=== PATIENT | male | born 1935 | race Caucasian/White ===

== ENCOUNTER 2017-11-30 20:03 | Emergency (ER) | payer MEDICARE ==
[2017-11-30] MEDS ORDERED: SODIUM CHLORIDE 0.9% FLUSH 10 ML SOL IV PRN (20:24)
[2017-11-30] MEDS ORDERED: SODIUM CHLORIDE 0.9% 1000ML 1,000 ML IV ONE (20:45)
[2017-11-30 20:52] LABS: BASOPHILS % (AUTO) 1 % (0-3); EOSINOPHILS % (AUTO) 1 % (0-9); HEMATOCRIT 42 % (39-53); HEMOGLOBIN 13.2 gm/dl (13.5-17.7); LYMPHOCYTES % (AUTO) 23.98 % (10-50); MEAN CORPUSCULAR HEMOGLOBIN 29.4 pg (27.0-32.0); MEAN CORPUSCULAR HGB CONC 31.2 gm/dl (32.0-36.0); MEAN CORPUSCULAR VOLUME 94 fL (80-100); MONOCYTES % (AUTO) 12.8 % (0-12); NEUTROPHILS % (AUTO) 61.2 % (37-80)
[2017-11-30 21:00] LABS: INR 0.97 (0.86-1.12)
[2017-11-30] MEDS ORDERED: LEVETIRACETAM (PREMIX) 1 GM 1 GM/100 ML SOL IV ONE ×2 (21:00→21:06)
[2017-11-30 21:07] LABS: ALBUMIN 3.3 gm/dl (3.4-5.0); BILIRUBIN,DIRECT 0.1 mg/dl (0.0-0.2); BILIRUBIN,TOTAL 0.3 mg/dl (0.2-1.0); CALCIUM 9.9 mg/dl (8.5-10.1); CARBON DIOXIDE 24.6 mEq/L (21-32); CREATININE 1.21 mg/dl (0.80-1.30); POTASSIUM 4.4 mMol/L (3.5-5.1); TOTAL PROTEIN 6.5 gm/dl (6.4-8.2)
[2017-11-30 21:59] VITALS: O2SAT 98
[2017-11-30 22:14] VITALS: BP 158/106; PULSE 68; RESP 30; TEMP 97.2
== END 2017-11-30 22:35 | disposition short-term general hospital (02) | DRG 948 ==
LOC: ED 20:03
DX: R41.82 Altered mental status, unspecified (principal)
CPT/HCPCS: 36415; 70450; 71045; 80048; 80076; 85025; 85610; 85730; 93005; 96365; 96366; 99291; J1953